=== PATIENT | female | born 1995 | race Caucasian/White ===

== ENCOUNTER 2017-06-21 16:55 | Emergency (ER) | payer OTHER ==
[~2017-06-21] VITALS: Ht 182.9 cm; Wt 106.1 kg
[2017-06-21 17:02] VITALS: BP 129/82
--- NOTE | 2017-06-21 17:12 | ED EAR COMPLAINT ---
History of Present Illness General Chief Complaint: Ear Complaints Stated Complaint: EAR PAIN S/P ACCIDENTALLY STABBING A QTIP INTO EAR Source: patient Exam Limitations: no limitations Vital Signs & Intake/Output Vital Signs & Intake/Output Vital Signs Date Time Temp Pulse Resp B/P B/P Pulse O2 O2 Flow FiO2 Mean Ox Delivery Rate 06/21 1702 97.8 89 18 129/82 98 Room Air Allergies Uncoded Allergies: APPLES (Intermediate, THROAT SWELLING 08/30/10) Reconcile Medications Ciprofloxacin HCl/Dexameth (Ciprodex Otic Suspension) 0.3 %-0.1 % DROPS.SUSP 4 GTT OT BID PERFORATED TM Triage Note: 22F STATES SHE WAS USING QTIP AND GOT FRIGHTENED AND ACCIDENTLY PUSHED IT IN HER EAR. REPORTS PAIN / WHEN IT OCCURRED, NOW 07/04. DRIED BLOOD TO CANAL AND ON OTOSCOPIC EXAM TM APPEARS PERFORATED. LEFT TM PEARLY AND INTACT. DENIES CHANGE IN HEARING. Triage Nurses Notes Reviewed? yes : No Patient currently breastfeeds: No HPI: 22F no PMH presents with right ear pain and bleeding after accidentally poking herself in her eardrum while cleaning her ears. She was startled and pushed too deep and felt a trickle of blood with moderate pain. Her hearing is intact. She has no other complaints. Past History Travel History Traveled to [place] past 21 day No Medical History Any Pertinent Medical History? see below for history Neurological: NONE EENT: NONE Cardiovascular: NONE Respiratory: NONE Gastrointestinal: NONE Hepatic: NONE Renal: NONE Musculoskeletal: NONE Psychiatric: NONE Endocrine: NONE Blood Disorders: NONE Cancer(s): NONE Surgical History Surgical History: non-contributory Psychosocial History What is your primary language Venezuelan Tobacco Use: Never used Family History Hx Contributory? No Review of Systems Review of Systems Constitutional: Reports: no symptoms. EENTM: Reports: see HPI. Respiratory: Reports: no symptoms. Cardiovascular: Reports: no symptoms. GI: Reports: no symptoms. Genitourinary: Reports: no symptoms. Musculoskeletal: Reports: no symptoms. Skin: Reports: no symptoms. Neurological/Psychological: Reports: no symptoms. Hematologic/Endocrine: Reports: no symptoms. Immunologic/Allergic: Reports: no symptoms. All Other Systems: Reviewed and Negative Physical Exam Physical Exam General Appearance: well developed/nourished, no apparent distress, mild distress Head: atraumatic, normal appearance Eyes: Bilateral: normal appearance. Ears: Left: canal normal, Tympanic normal. Right: evidence of perforation. Nose: normal inspection Mouth/Throat: normal mouth inspection Neck: normal inspection, supple Cardiovascular/Respiratory: normal breath sounds, regular rate/rhythm Back: normal inspection Neurologic/Psych: awake, alert, oriented x 3, normal mood/affect Skin: intact, normal color, warm/dry Progress Differential Diagnoses I considered the following diagnoses in my evaluation of the patient: perforation, otitis media/externa, hearing loss, cellulitis, meningitis. Plan of Care: Current Medications Sig/[place] Start time Last Medication Dose Stop Time Status Admin Ibuprofen 600 MG ONCE ONE 06/21 1714 UNVr 06/21 (Motrin) 06/21 1716 1707 Initial ED EKG: none Departure Departure Disposition: HOME OR SELF CARE Condition: Stable Clinical Impression Primary Impression: Perforated right tympanic membrane on examination Referrals: Cande GILMORE,Abilio Ham (PCP/Family) Javon GILMORE,John Wu Additional Instructions: Follow up with the ENT referral provided. Use eardrops as indicated. If you notice fever, chills, worsening ear pain, hearing loss or changes, neck stiffness, sensitivity to light, or any other new or worsening symptoms, return to emergency department. Departure Forms: Customer Survey General Discharge Information Prescriptions: Current Visit Scripts Ciprofloxacin HCl/Dexameth (Ciprodex Otic Suspension) 4 GTT OT BID #1 BOT
[2017-06-21] MEDS ORDERED: CIPRODEX OTIC7.5 ML OT (17:17)
== END 2017-06-21 17:25 ==
LOC: ERH 16:55
DX: H72.91 Unspecified perforation of tympanic membrane, right ear (principal)